=== PATIENT | male | born 1985 | race Caucasian/White ===

== ENCOUNTER → 2021-11-05 11:15 | Outpatient (CLI) | payer OTHER, SELFPAY ==
--- NOTE | 2021-11-05 | DI.MRI.S_ITS ---
PROCEDURE: MR HAND LT WO CON INDICATIONS: Sprain of interphalangeal joint of left thumb TECHNIQUE: Noncontrast oblique coronal T1 spin echo and T2 fast spin echo with fat saturation, axial and sagittal T2 fast spin echo with fat saturation, through the thumb. COMPARISON: [facility] ([facility]), CR, XR HAND LT MIN 3V, 10/11/2021, 10:07. FINDINGS: Image quality: Diagnostic. Patient motion is noted with multiple sequences repeated. Bones: The bones are normally aligned, without marrow contusions or fractures. No intra-osseous lesions. There is significant soft tissue edema and swelling over medial aspect of 1st proximal phalangeal shaft. First carpometacarpal joint: On sagittal images, the dorsal radial ligament and posterior oblique ligament appear intact. The intermetacarpal ligament between the 1st and 2nd metacarpal bases also appears intact. On the volar aspect, the deep and superficial layers of the anterior oblique ligament appear intact. First metacarpophalangeal joint: The proper and accessory components of the radial collateral ligament appears thickened with adjacent soft tissue edema in near its proximal insertion . The overlying fibers of the abductor pollicis brevis tendon also appears slightly attenuated suggestive of low-grade partial-thickness tear. The proper and accessory components of the ulnar collateral ligaments appear intact, along with overlying fibers of the adductor pollicis muscle. The aponeurosis of the adductor pollicis muscle also appears normal. The volar plate appears intact on sagittal images, situated between the radial and ulnar sesamoids. Interphalangeal joint: Moderate thickening of ulnar collateral ligaments of 1st interphalangeal joint is seen. Thenar muscles: The superficial abductor pollicis longus muscle appears normal, with tendon inserting on the radial base of the first proximal phalanx. The opponens pollicis muscle also appears normal, inserting on the first metacarpal shaft. The flexor pollicis brevis muscle appears normal, with tendon inserting on the radial sesamoid and first proximal phalanx. The oblique and transverse heads of the adductor pollicis muscle appear normal, inserting on the ulnar sesamoid and proximal phalanx as part of the adductor aponeurosis. Flexor pollicis longus tendon: Tendon fibers appear intact, coursing between the thenar eminence muscles and the adductor pollicis muscle, and inserting on the volar base of the distal phalanx. The first annular zoey at the level of the first MCP joint appears intact, intimate with the sesamoids. The second annular zoey at the level of interphalangeal joint also appears intact. The oblique annular zoey between the 1st and 2nd annular pulleys appears intact, with ulnar proximal attachment intimate with the adductor aponeurosis. The variable annular zoey also appears intact between the first annular and oblique annular pulleys. Extensor tendons: The extensor pollicis brevis tendon appears intact, coursing radial to the extensor pollicis longus tendon and inserting on the dorsal base of the proximal phalanx, blending with the dorsal plate of the first MCP joint. The extensor pollicis longus tendon appears intact as it inserts on the dorsal base of the distal phalanx. The sagittal band at the level of the first MCP joint appears intact. The abductor pollicis longus tendon slips appear intact at the radial aspect of the proximal phalanx, proximal to the abductor pollicis brevis tendon insertion. Miscellaneous: No ganglion cysts. IMPRESSION: 1. Soft tissue edema and swelling along ulnar aspect of left thumb adjacent to 1st proximal phalanx. No marrow edema. No fracture or dislocation. No suspicious intraosseous lesion. 2. Suggestion of sprain/partial-thickness tear involving ulnar collateral ligament of 1st interphalangeal joint. 3. Moderate grade sprain/partial-thickness tear involving proximal radial collateral ligament of 1st MCP joint. Low-grade partial-thickness tear also noted involving overlying fibers of adductor pollicis brevis tendon. No full-thickness tendon or ligament rupture. 4. No other muscle or tendon signal abnormalities. Dictated by: Nader Salamanca M.D. on 11/05/2021 at 16:29 Approved by: Nader Salamanca M.D. on 11/05/2021 at 16:36
== END ==
PROVIDERS: Family Provider Family Medicine; PCP Family Medicine; Referring Provider Orthopaedic Surgery; Visit Provider Orthopaedic Surgery
DX: S63.642A Sprain of metacarpophalangeal joint of left thumb, initial encounter (principal); X58.XXXA Exposure to other specified factors, initial encounter
CPT/HCPCS: 73218